=== PATIENT | female | born 1945 | race Caucasian/White ===

== ENCOUNTER → 2022-09-12 | Outpatient (CLI) | payer MEDICARE, OTHER | LOC: LAB 12:00 → LAB SHORT 12:00 | DX: L97.512 Non-pressure chronic ulcer of other part of right foot with fat layer exposed (principal); L60.2 Onychogryphosis; B35.1 Tinea unguium; E11.42 Type 2 diabetes mellitus with diabetic polyneuropathy | CPT/HCPCS: 87070; 87077; 87147; 87186; 87205 ==